=== PATIENT | male | born 1995 | race African-American/Black ===

== ENCOUNTER 2020-03-27 12:35 | Emergency (ER) | payer SELFPAY ==
[~2020-03-27] VITALS: Ht 165.1 cm; Wt 59.0 kg
[~2020-03-27 12:35] MED LIST: CLEOCIN150 MG PO; MOTRIN400 MG PO; Motrin,Rufen800 MG PO; NAPROSYN500 MG PO; PERCOCET 325 MG1 TA2 PO; PREDNISONE10 MG PO
[2020-03-27 12:41] VITALS: BP 134/91
[2020-03-27 13:27] LABS: BASO % 0.7 % (0.0-1.0); EOS # 0.4 10*3/uL (0.0-0.4); EOS % 7.2 % (1.0-4.0); HEMATOCRIT 48.5 % (42.0-52.0); LYMPH # 2.3 10*3/uL (1.3-4.4); LYMPH % 41.2 % (27.0-41.0); MEAN CELL VOLUME 95.8 fl (80.0-94.0); MEAN CORPUSCULAR HGB 31.8 pg (27.0-31.0); MEAN CORPUSCULAR HGB CONC 33.2 g/dl (33.0-37.0); MEAN PLATELET VOLUME 10.1 fl (9.6-12.3); MONO # 0.7 10*3/uL (0.1-1.0); MONO % 11.4 % (3.0-9.0); NEUT # 2.2 10*3/uL (2.3-7.9); NEUT % 39.3 % (47.0-73.0); PLATELET COUNT AUTOMATED 244 10*3/uL (130-400); RED BLOOD COUNT 5.06 10*6/uL (4.50-5.90); RED CELL DISTRI WIDTH 13.3 % (0-14.5); WHITE BLOOD COUNT 5.7 10*3/uL (4.8-10.8)
[2020-03-27 13:39] LABS: ACT PARTIAL THROMBO TIME 28.2 SECONDS (20.0-32.1)
[2020-03-27 13:44] LABS: ALBUMIN 4.4 gm/dl (3.1-4.5); BUN 10 mg/dl (7-24); CHLORIDE 104 mmol/L (98-107); CREATININE 1.13 mg/dL (0.70-1.30); LIPASE 56 U/L (73-393); POTASSIUM 3.8 mmol/L (3.5-5.1); SGOT/AST 20 IU/L (3-35); SGPT/ALT 33 U/L (12-78); SODIUM 138 mmol/L (136-145)
[2020-03-27 13:46] LABS: ALKALINE PHOSPHATASE 88 U/L (45-117)
[2020-03-27 13:49] LABS: TROPONIN I < 0.015 ng/ml (<0.045)
[2020-03-27 13:58] LABS: BILIRUBIN NEGATIVE (NEGATIVE); BLOOD NEGATIVE (NEGATIVE); CLARITY CLEAR (CLEAR); COLOR YELLOW (YELLOW); GLUCOSE NEGATIVE (NEGATIVE); KETONE 1+ (NEGATIVE); NITRITE NEGATIVE (NEGATIVE); UROBILINOGEN 0.2 E.U./dl (0.2-1.0)
[2020-03-27 13:59] LABS: LEUKO ESTERASE NEGATIVE (NEGATIVE)
[2020-03-27 14:05] LABS: BACTERIA TRACE; MUCOUS 2+
[2020-03-27] MEDS ORDERED: PREDNISONE20 M1 PO (14:30)
[2020-03-27] MEDS ORDERED: PROVENTIL HFA6.7 GM INH (14:30)
[2020-03-27] MEDS ORDERED: IBU800 MG PO (14:30)
== END 2020-03-27 15:03 | disposition home or self-care (01) ==
LOC: ED 12:35
PROVIDERS: Nurse Practitioner Family
DX: J20.9 Acute bronchitis, unspecified (principal); F17.200 Nicotine dependence, unspecified, uncomplicated; Z79.899 Other long term (current) drug therapy

== ENCOUNTER 2020-04-30 07:48 | Emergency (ER) | payer SELFPAY ==
[~2020-04-30] VITALS: Ht 162.5 cm; Wt 56.7 kg
[~2020-04-30 07:48] MED LIST changes: +IBU800 MG PO; +PREDNISONE20 M1 PO; +PROVENTIL HFA6.7 GM INH
[2020-04-30 07:53] VITALS: BP 133/78
[2020-04-30 08:58] LABS: BASO # 0.1 10*3/uL (0.0-0.1); BASO % 1.4 % (0.0-1.0); EOS # 0.3 10*3/uL (0.0-0.4); EOS % 3.7 % (1.0-4.0); HEMATOCRIT 49.9 % (42.0-52.0); LYMPH # 2.7 10*3/uL (1.3-4.4); LYMPH % 37.2 % (27.0-41.0); MEAN CORPUSCULAR HGB 31.8 pg (27.0-31.0); MEAN CORPUSCULAR HGB CONC 33.9 g/dl (33.0-37.0); MEAN PLATELET VOLUME 9.9 fl (9.6-12.3); MONO # 0.9 10*3/uL (0.1-1.0); NEUT # 3.2 10*3/uL (2.3-7.9); NEUT % 44.7 % (47.0-73.0); PLATELET COUNT AUTOMATED 239 10*3/uL (130-400); RED BLOOD COUNT 5.31 10*6/uL (4.50-5.90); RED CELL DISTRI WIDTH 13.2 % (0-14.5); WHITE BLOOD COUNT 7.2 10*3/uL (4.8-10.8)
[2020-04-30 09:14] LABS: ALBUMIN 4.3 gm/dl (3.1-4.5); ALKALINE PHOSPHATASE 88 U/L (45-117); BUN 11 mg/dl (7-24); CHLORIDE 104 mmol/L (98-107); CREATININE 1.06 mg/dL (0.70-1.30); LIPASE 51 U/L (73-393); POTASSIUM 3.8 mmol/L (3.5-5.1); SGOT/AST 54 IU/L (3-35); SGPT/ALT 44 U/L (12-78); SODIUM 136 mmol/L (136-145); TOTAL PROTEIN 8.2 gm/dL (6.4-8.2)
[2020-04-30] MEDS ORDERED: ZOFRAN4 MG PO (10:01)
== END 2020-04-30 10:15 | disposition home or self-care (01) ==
LOC: ED 07:48
PROVIDERS: Family Medicine
DX: K52.9 Noninfective gastroenteritis and colitis, unspecified (principal); Z79.899 Other long term (current) drug therapy

== ENCOUNTER 2020-08-04 09:35 | Emergency (ER) | payer OTHER ==
[~2020-08-04] VITALS: Ht 162.5 cm; Wt 56.7 kg
[~2020-08-04 09:35] MED LIST changes: +ZOFRAN4 MG PO
[2020-08-04 09:37] VITALS: BP 133/88
== END 2020-08-04 14:25 | disposition home or self-care (01) ==
LOC: ED 09:35
DX: S00.93XA Contusion of unspecified part of head, initial encounter (principal); S80.01XA Contusion of right knee, initial encounter; Z79.899 Other long term (current) drug therapy; V89.2XXA Person injured in unspecified motor-vehicle accident, traffic, initial encounter; Y93.89 Activity, other specified; Y92.89 Other specified places as the place of occurrence of the external cause; Y99.8 Other external cause status

== ENCOUNTER 2021-08-13 05:28 | Emergency (ER) | payer SELFPAY ==
[~2021-08-13] VITALS: Ht 167.6 cm; Wt 62.1 kg
[2021-08-13 08:53] VITALS: BP 146/78
[2021-08-13 09:30] LABS: URINE AMPHETAMINES < 1000 (1000ng/ml); URINE BARBITURATES < 200 (200ng/ml); URINE BENZODIAZEPINES < 200 (200ng/ml); URINE CANNABINOIDS (THC) < 50 (50ng/ml); URINE COCAINE < 300 (300ng/ml); URINE METHADONE < 300 (300ng/ml); URINE OPIATES < 300 (300ng/ml)
[2021-08-13 09:32] LABS: URINE PHENCYCLIDINE < 25 (25ng/ml)
== END 2021-08-13 10:00 | disposition home or self-care (01) ==
LOC: ED 05:28
PROVIDERS: Internal Medicine
DX: T40.2X1A Poisoning by other opioids, accidental (unintentional), initial encounter (principal); Z88.1 Allergy status to other antibiotic agents; Y92.89 Other specified places as the place of occurrence of the external cause

== ENCOUNTER 2022-05-07 15:02 | Emergency (ER) | payer SELFPAY | END 2022-05-07 19:06 | disposition left against medical advice (07) | LOC: ED 15:02 | DX: M25.512 Pain in left shoulder (principal); Z53.21 Procedure and treatment not carried out due to patient leaving prior to being seen by health care provider ==

== ENCOUNTER 2022-05-08 14:13 | Emergency (ER) | payer SELFPAY ==
[~2022-05-08] VITALS: Ht 165 cm; Wt 63.5 kg
[2022-05-08 14:39] VITALS: BP 131/79
== END 2022-05-08 18:26 | disposition home or self-care (01) ==
LOC: ED 14:13
DX: M25.512 Pain in left shoulder (principal); Z88.0 Allergy status to penicillin

== ENCOUNTER 2025-04-24 12:41 | Emergency (ER) | payer OTHER ==
[~2025-04-24] VITALS: Ht 165.1 cm; Wt 57.2 kg
[2025-04-24 13:04] VITALS: BP 142/89
[2025-04-24 15:34] LABS: BASO # 0.0 10*3/uL (0.0-0.1); BASO % 0.4 % (0.0-1.0); EOS # 0.0 10*3/uL (0.0-0.4); EOS % 0.1 % (1.0-4.0); MEAN CELL VOLUME 87.3 fl (80.0-94.0); MEAN CORPUSCULAR HGB 28.6 pg (27.0-31.0); MEAN PLATELET VOLUME 9.4 fl (9.6-12.3); MONO # 0.4 10*3/uL (0.1-1.0); MONO % 4.5 % (3.0-9.0); NEUT # 7.1 10*3/uL (2.3-7.9); NEUT % 77.2 % (47.0-73.0); NUCLEATED RED BLOOD CELL 0.0 % (0.0-0.0); NUCLEATED RED BLOOD CELL 0.0 10*3/uL (0.0-0.0); PLATELET COUNT AUTOMATED 284 10*3/uL (130-400); RED CELL DISTRI WIDTH 13.3 % (0-14.5)
[2025-04-24 15:59] LABS: BUN 11 mg/dl (9-23); CPK 59 U/L (34-171); SGPT/ALT 11 U/L (5-49)
[2025-04-24 16:00] LABS: ETHYL ALCOHOL < 3.0 mg/dl (<3)
[2025-04-24 19:01] LABS: ACT PARTIAL THROMBO TIME 25.6 SECONDS (20.0-32.1)
== END 2025-04-24 16:40 | disposition left against medical advice (07) ==
LOC: ED 12:41
PROVIDERS: Internal Medicine
DX: F11.23 Opioid dependence with withdrawal (principal); F17.200 Nicotine dependence, unspecified, uncomplicated; Z53.29 Procedure and treatment not carried out because of patient's decision for other reasons